=== PATIENT | male | born 1980 | race Caucasian/White ===

== ENCOUNTER 2016-03-12 11:39 | Emergency (ER) | payer OTHER ==
[~2016-03-12] VITALS: Ht 182.9 cm; Wt 62.6 kg
[~2016-03-12 11:39] MED LIST: DONNATAL TABL16.2 MG PO; LEVSIN-SL0.125 MG SL; PEPCID20 M1 PO; PERCOCET 325 MG1 TA2 PO; PROTONIX40 M3 PO; REGLAN10 M1 PO; TYLENOL325 M1 PO
[2016-03-12 11:42] VITALS: BP 144/78
--- NOTE | 2016-03-12 13:11 | ED SKIN/ALLERGY COMPLAINT ---
History of Present Illness General Chief Complaint: Skin Rash/ Abcess Stated Complaint: "BUMP" ON LEFT SHOULDER Source: patient Exam Limitations: no limitations Vital Signs & Intake/Output Vital Signs & Intake/Output Vital Signs Date Time Temp Pulse Resp B/P Pulse O2 O2 Flow FiO2 Ox Delivery Rate 03/12 1142 98.7 100 18 144/78 98 Room Air Allergies Coded Allergies: No Known Allergies (11/12/15) Reconcile Medications Acetaminophen (Tylenol) 325 MG TABLET 650 MG PO Q4P PRN PAIN OR HEADACHE Amoxicillin 500 MG CAPSULE 1 CAP PO TID INFECTION Hydrocodone/Acetaminophen ([place] 5-325 Tablet) 5 MG-325 MG TABLET 1 TAB PO TIDPRN PRN PAIN Sulfamethoxazole/Trimethoprim (Bactrim Ds Tablet) 800 MG-160 MG TABLET 1 TAB PO BID INFECTION Triage Note: 35 Y/O MALE C/O PAIN TO R EYE AND "BUMPS" TO L SHOULDER AND UNDER R ARM X 4 DAYS. AFEBRILE. Triage Nurses Notes Reviewed? yes HPI: 35-year-old male with painful swollen reddened area to left shoulder and right axillary region that has been going on for the last 4 days. He has no fever or flulike illness no nausea no vomiting no history of same. There's been no treatment thus far. It is worse with palpation and motion. Symptoms are moderate, throbbing pain. Past History Travel History Traveled to [place] past 21 day No Medical History Any Pertinent Medical History? see below for history Neurological: NONE EENT: NONE Cardiovascular: NONE Respiratory: spontaneous pneumothorax-2012 (admitted to [facility] with chest tube) Gastrointestinal: NONE Hepatic: NONE Renal: NONE Musculoskeletal: NONE Psychiatric: NONE Endocrine: NONE Blood Disorders: NONE Cancer(s): NONE PRIVACY OFFICER/Reproductive: NONE Other Medical Hx: None History of MRSA: No History of VRE: No History of CDIFF: No Influenza Vaccine: 11/09/11 Surgical History Surgical History: none Psychosocial History Services at Home None What is your primary language Irish Tobacco Use: Current Daily Use Daily Tobacco Use Amount/Type: => 5 Cigarettes daily Family History Hx Contributory? No Review of Systems Review of Systems Constitutional: Reports: see HPI. EENTM: Reports: no symptoms. Respiratory: Reports: no symptoms. Cardiovascular: Reports: no symptoms. GI: Reports: no symptoms. Genitourinary: Reports: no symptoms. Musculoskeletal: Reports: no symptoms. Skin: Reports: see HPI. Neurological/Psychological: Reports: no symptoms. Hematologic/Endocrine: Reports: no symptoms. Immunologic/Allergic: Reports: no symptoms. All Other Systems: Reviewed and Negative Physical Exam Physical Exam General Appearance: well developed/nourished Comments: Well-developed well-nourished no apparent distress. HEENT: Atraumatic, extraocular motion intact Neck: Supple, no lymphadenopathy Back: Nontender Respiratory: No respiratory distress Extremities: No edema, full range of motion Neuro: Alert and oriented x3 Psych: Mood affect normal, normal memory normal judgment. Skin: Warm and dry, no rash on exposed skin Right axillary region with 2 x 2 3 cm abscess which is reddened and swollen indurated and moderately tender to palpation. Mild lymphadenopathy noted in the area without any significant cellulitis. Left distal clavicle region posterior aspect with a 4 x 5 cm reddened inflamed indurated fluctuant abscess. Moderately tender to palpation. Mild surrounding erythema and induration. Progress Differential Diagnosis: abscess/cellulitis, allergic reaction, contact dermatitis, drug reaction, mrsa Plan of Care: Orders Procedure Date/time Status TRUNK AREA CULTURE 03/12 132 Active EXTREMETIES CULTURE 03/12 132 Active Microbiology 03/12 1328 TRUNK: Culture & Sensitivity - ORD 03/12 132 TRUNK: Gram Stain - ORD 03/12 132 EXTREMITIE: Culture & Sensitivity - ORD 03/12 1321 EXTREMITIE: Gram Stain - ORD Comments: After verbal consent was obtained, the right axillary region and the left distal clavicular region was cleansed and sterilized with Betadine and 5 mL of 2% lidocaine with epinephrine was instilled into each area. A 15 blade scalpel was used to incise the abscess is and small amount of purulent discharge was expressed. Wounds were probed and loculations were broken up with a Esther clamp. There were then irrigated. Cultures were obtained during the procedure. Sterile dressing was then applied. Patient tolerated the procedure well without complications. He will return to the ER in the next 2-3 days for wound check. Placed on amoxicillin and Bactrim, high suspicion for MRSA Departure Departure Disposition: HOME OR SELF CARE Condition: Stable Clinical Impression Primary Impression: Abscess of left shoulder Secondary Impressions: Abscess of right axilla Referrals: PATIENT HAS NO PRIMARY CARE DR (PCP/Family) Additional Instructions: Return in 2-3 days for recheck of the abscesses. Apply warm compresses to the area. Motrin and Tylenol as needed for pain. Take antibiotics as directed for infection Return with worsening pain, fever, flulike illness Departure Forms: Customer Survey General Discharge Information Prescriptions: Current Visit Scripts Amoxicillin 1 CAP PO TID #30 CAP Sulfamethoxazole/Trimethoprim (Bactrim Ds Tablet) 1 TAB PO BID #20 TAB Hydrocodone/Acetaminophen ([place] 5-325 Tablet) 1 TAB PO TIDPRN PRN PAIN #10 TAB
[2016-03-12] MEDS ORDERED: BACTRIM DS TAB1 EACH PO (14:06)
[2016-03-12] MEDS ORDERED: NORCO 5-325 TA1 EACH PO (14:06)
[2016-03-12] MEDS ORDERED: AMOXICILLIN500 M2 PO (14:06)
== END 2016-03-12 14:14 ==
LOC: ERH 11:39
DX: L02.414 Cutaneous abscess of left upper limb (principal); L02.411 Cutaneous abscess of right axilla
CPT/HCPCS: 87184; 87070; 87147

== ENCOUNTER 2016-03-14 12:49 | Emergency (ER) | payer OTHER ==
[~2016-03-14] VITALS: Ht 182.9 cm; Wt 62.6 kg
[~2016-03-14 12:49] MED LIST changes: +AMOXICILLIN500 M2 PO; +BACTRIM DS TAB1 EACH PO; +NORCO 5-325 TA1 EACH PO
--- NOTE | 2016-03-14 14:11 | ED ANIMAL BITE/WOUND CHECK ---
History of Present Illness General Chief Complaint: Suture Removal/Wound Recheck Stated Complaint: HERE 03/12, TOLD TO RETURN TODAY FOR WOUND CHECK Source: patient Exam Limitations: no limitations Vital Signs & Intake/Output Vital Signs & Intake/Output Vital Signs Date Time Temp Pulse Resp B/P Pulse O2 O2 Flow FiO2 Ox Delivery Rate 03/14 1709 98.8 91 18 144/80 97 Room Air Room Air 03/14 1310 98.6 99 20 154/83 98 Room Air Allergies Coded Allergies: No Known Allergies (11/12/15) Triage Note: PT TO ED FOR WOUND CHECK TO LEFT SHOULDER. WAS HERE 2 DAYS AGO AND HAD I & D TO LEFT SHOULDER. TOLD TO COME BACK TODAY. Triage Nurses Notes Reviewed? yes Onset: Abrupt Duration: day(s): (4-5) Timing: recent history Injury Environment: home HPI: 35-year-old male comes into emergency room for abscess recheck to left shoulder. Patient had an incision and drainage done 2 days ago here. Patient has no prior history of abscesses. Denies any fever or chills or flulike symptoms. Denies vomiting. Patient reports that the swelling has persisted in his left shoulder. Sharp throbbing pain. Continuous. Severe in nature. Affecting his ability to sleep at night. Denies any other associated symptoms. (COLEEN NEELY) Reconcile Medications Amoxicillin 500 MG CAPSULE 1 CAP PO TID INFECTION Hydrocodone/Acetaminophen ([place] 5-325 Tablet) 5 MG-325 MG TABLET 1 TAB PO TIDPRN PRN PAIN Oxycodone HCl/Acetaminophen (Percocet 5-325 MG Tablet) 5 MG-325 MG TABLET 1-2 TAB PO Q6P PRN PAIN Sulfamethoxazole/Trimethoprim (Bactrim Ds Tablet) 800 MG-160 MG TABLET 1 TAB PO BID INFECTION (MARITZA DANIEL,BRITTA) Past History Travel History Traveled to [place] past 21 day No Medical History Any Pertinent Medical History? 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 No (COLEEN NEELY) Review of Systems Review of Systems Constitutional: Reports: no symptoms. EENTM: Reports: no symptoms. Respiratory: Reports: no symptoms. Cardiovascular: Reports: no symptoms. GI: Reports: no symptoms. Genitourinary: Reports: no symptoms. Musculoskeletal: Reports: no symptoms. Skin: Reports: see HPI. Neurological/Psychological: Reports: no symptoms. Hematologic/Endocrine: Reports: no symptoms. Immunologic/Allergic: Reports: no symptoms. All Other Systems: Reviewed and Negative (COLEEN NEELY) Physical Exam Physical Exam General Appearance: well developed/nourished, mild distress Head: atraumatic Eyes: Bilateral: normal appearance. Ears, Nose, Throat: normal ENT inspection, hearing grossly normal Neck: normal inspection Respiratory: no respiratory distress Cardiovascular: regular rate/rhythm Back: normal inspection Extremities: normal range of motion Neurologic/Psych: awake, alert, oriented x 3, normal mood/affect Skin: abscess left shoulder, erythema, locules, white discharge, Lymphatic: no anterior cervical meme (COLEEN NEELY) Progress Differential Diagnosis: abscess, cellulitis, joint infection, tenosysnovitis Plan of Care: Orders Procedure Date/time Status CBC WITHOUT DIFFERENTIAL 03/14 1408 Complete BASIC METABOLIC PANEL 03/14 1408 Complete Laboratory Tests 03/14/16 1419: Anion Gap 10, Estimated GFR > 60, BUN/Creatinine Ratio 9.0, Glucose 83, Calcium 9.3, CBC w Diff NO MAN DIFF REQ, RBC 4.80, MCV 81.4, MCH 26.5 L, RDW 19.2 H, MPV 8.2, Gran % 66.1, Lymphocytes % 23.5, Monocytes % 7.0, Eosinophils % 3.0, Basophils % 0.4, Absolute Granulocytes 7.4 H, Absolute Lymphocytes 2.6, Absolute Monocytes 0.8 H, Absolute Eosinophils 0.3, Absolute Basophils 0, PUBS MCHC 32.6 L Departure Departure Disposition: HOME OR SELF CARE Condition: Stable Clinical Impression Primary Impression: Abscess of left shoulder Referrals: PATIENT HAS NO PRIMARY CARE (PCP/Family) Additional Instructions: Continue taking Bactrim. You can discontinue amoxicillin. Return on Wednesday for another wound check between 5 PM and 1 AM. Change dressing on Wednesday with bacitracin and dry dressing over it. Take Percocet as prescribed. Please go over all results of today's visit with your primary care doctor. Contact your primary care doctor to let them know you were here in the emergency room. There may be nonspecific findings which may not be related to your visit today here in the emergency room but may require further evaluation and chronic monitoring by your primary care doctor. If you had a laceration today the chance of foreign body always remains. You should follow-up with your primary care doctor for recheck in 3-5 days for a wound check. If you had an x-ray done there is a chance that a fracture could have been missed on initial read and you should follow-up with your primary care doctor for repeat x-rays if symptoms persist. If your blood pressure was elevated here in the emergency room please have rechecked by her primary care doctor within the next 48 hours by your primary care doctor. If you were prescribed a narcotic here in the emergency room or any type of controlled substances you're not allowed to drive while taking this medication or operate any type of heavy machinery. Narcotics can make you feel lightheaded dizziness nausea and can cause constipation. You may need to strip picker a stool softener. Thank you for choosing [facility] emergency room. Please return to the emergency room immediately if you have any other concerns worsening of symptoms. Departure Forms: Customer Survey General Discharge Information Prescriptions: Current Visit Scripts Oxycodone HCl/Acetaminophen (Percocet 5-325 MG Tablet) 1-2 TAB PO Q6P PRN PAIN #15 TAB Comments 03/14/2016 5:03:14 PM Abscess was broken up again. Patient seen by Dr. wise. Patient given dose of IV antibiotics. Patient will return in another 3 days for wound check. (COLEEN NEELY) PA/POSTAL SERVICE WINDOW CLERK Co-Sign Statement Statement: ED Attending supervision documentation- [X] I saw and evaluated the patient. I have also reviewed all the pertinent lab results and diagnostic results. I agree with the findings and the plan of care as documented in the PA's/POSTAL SERVICE WINDOW CLERK's documentation. [X] I have reviewed the ED Record and agree with the PA's/POSTAL SERVICE WINDOW CLERK's documentation. [] Additions or exceptions (if any) to the PAs/POSTAL SERVICE WINDOW CLERK's note and plan are summarized below: [] (MARITZA DANIEL,BRITTA) Procedures Incision and Drainage Site: left shoulder Blade Size: 15 I & D Procedure: Yes: betadine prep, sterile drapes applied, sterile dressing applied. Progress: 1% lidocaine with epi use, abscess severely loculated, adhesions broken up, small amount of tissue debridement, covered with sterile dressing, (COLEEN NEELY)
[2016-03-14 14:28] LABS: ABSOLUTE BASOPHIL COUNT 0 /CUMM (0.0-0.2); ABSOLUTE EOSINOPHIL COUNT 0.3 /CUMM (0.0-0.7); ABSOLUTE GRANULOCYTE CT 7.4 /CUMM (1.4-6.5); ABSOLUTE LYMPH COUNT 2.6 /CUMM (1.2-3.4); ABSOLUTE MONOCYTE COUNT 0.8 /CUMM (0.10-0.60); BASOPHIL % 0.4 % (0.0-2.0); GRANULOCYTE % 66.1 % (42.2-75.2); HEMATOCRIT 39.1 % (42-52); MEAN CORPUSCULAR HGB 26.5 PG (27.0-31.0); MEAN CORPUSCULAR HGB CONC 32.6 G/DL (33.0-37.0); MEAN CORPUSCULAR VOLUME 81.4 FL (80.0-94.0); MEAN PLATELET VOLUME 8.2 FL (7.4-10.4); PLATELET COUNT 299 /CUMM (130-400); RBC DISTRIBUTION WIDTH 19.2 % (11.5-14.5); WHITE BLOOD CELL COUNT 11.2 /CUMM (4.8-10.8)
[2016-03-14] MEDS ORDERED: PERCOCET 5-3251 EACH PO (16:39)
[2016-03-14 17:09] VITALS: BP 144/80
== END 2016-03-14 17:10 ==
LOC: ERH 12:49
PROVIDERS: Physician Assistant Medical
DX: L02.414 Cutaneous abscess of left upper limb (principal)
CPT/HCPCS: 96374; J3370